=== PATIENT | female | born 1995 | race Caucasian/White ===

== ENCOUNTER 2017-05-21 22:57 | Emergency (ER) | payer OTHER ==
[~2017-05-21] VITALS: Ht 157.5 cm; Wt 50.0 kg
[~2017-05-21 22:57] MED LIST: CEPH500C3 PO; Z.0.NO CURRENT MEDS
[2017-05-21 23:02] VITALS: BP 133/85; PULSE 95; RESP 16; TEMP 98; O2SAT 100
[2017-05-21] MEDS ORDERED: HYDR-3533 PO (23:12)
[2017-05-21] MEDS ORDERED: SILV1CRE20 TOPICAL (23:12)
[2017-05-21] MEDS ORDERED: TETANUS/DIPHTHERIA TOXOID ADULT 0.5 ML VIAL IM ONE (23:15)
[2017-05-21] MEDS ORDERED: ACETAMINOPHEN/HYDROcodone 325 MG/5 MG TAB PO ONE (23:15)
[2017-05-21] MEDS ORDERED: SILVER SULFADIAZINE 1% CR 50 GM JAR TOPICAL ONE (23:15)
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
== END 2017-05-21 23:41 | disposition home or self-care (01) ==
LOC: NEPD 22:57
DX: T24.212A Burn of second degree of left thigh, initial encounter (principal); W39.XXXA Discharge of firework, initial encounter; Z23 Encounter for immunization
CPT/HCPCS: 16000; 90471; 90714